=== PATIENT | male | born 1990 | race Caucasian/White ===

== ENCOUNTER 2017-01-13 01:38 | Emergency (ER) | payer OTHER, SELFPAY ==
[~2017-01-13] VITALS: Ht 177.8 cm; Wt 90.0 kg
[2017-01-13 01:39] VITALS: BP 141/94
[2017-01-13] MEDS ORDERED: SODIUM CHLORIDE 0.9% 1,000 ML IV ONE (01:53)
[2017-01-13] MEDS ORDERED: HYDROmorphone 1 MG/ML, 1ML ONE ×2 (01:59→02:11)
[2017-01-13] MEDS ORDERED: ONDANSETRON 2MG/ML, 2ML ONE ×2 (01:59→02:12)
[2017-01-13] MEDS ORDERED: ONDANSETRON 2MG/ML, 2ML IVPush ONE (02:00)
[2017-01-13] MEDS ORDERED: HYDROmorphone 1 MG/ML, 1ML IV ONE (02:00)
[2017-01-13] MEDS ORDERED: SODIUM CHLORIDE FLUSH 10ML SYR IVF ONE (02:00)
[2017-01-13] MEDS ORDERED: PROPOFOL 10 MG/ML, 20ML ONE (02:25)
[2017-01-13] MEDS ORDERED: PROPOFOL 10 MG/ML, 20ML IVPush ONE ×2 (02:30)
== END 2017-01-13 05:00 | disposition home or self-care (01) ==
LOC: ED 04:30
DX: S43.085A Other dislocation of left shoulder joint, initial encounter (principal); X58.XXXA Exposure to other specified factors, initial encounter; Y93.89 Activity, other specified; Y99.8 Other external cause status; Y92.009 Unspecified place in unspecified non-institutional (private) residence as the place of occurrence of the external cause; Z01.818 Encounter for other preprocedural examination
CPT/HCPCS: 23650; 73020; 73030; 96361; 96374; 96375; 99152; 99153; 99285; J1170; J2405; J2704; J7030

== ENCOUNTER → 2017-01-24 | Outpatient (CLI) | payer SELFPAY ==
[~2017-01-24] MED LIST: LIDOCAINE 1%, 20ML ONE; MULTIHANCE 529 MG/ML, 5ML IV ONE; OMNIPAQUE 300 MG/ML, 10ML VIAL ONE; ROPIvacaine/PF 0.2%, 20 ML ONE
== END | disposition home or self-care (01) ==
LOC: CFH 13:42
PROVIDERS: ATTEND Physician Assistant
DX: S43.085A Other dislocation of left shoulder joint, initial encounter (principal); X58.XXXA Exposure to other specified factors, initial encounter; Y93.89 Activity, other specified; Y92.89 Other specified places as the place of occurrence of the external cause; Y99.8 Other external cause status
CPT/HCPCS: 73040; 73222; A9577; J2795; J3490; Q9967

== ENCOUNTER 2020-04-14 17:47 | Emergency (ER) | payer BC, MEDICAID, OTHER ==
[~2020-04-14] VITALS: Ht 177.8 cm; Wt 96.0 kg
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
--- NOTE | 2020-04-14 18:53 | NUR ---
REPORT RECEIVED FROM SCOTTIE RN. PT RESTING ON GURNEY, MONITORING IN PLACE, CALL LIGHT WITHIN REACH, ALL SAFETY MEASURES IN PLACE.
[2020-04-14 19:01] VITALS: BP 127/83
--- NOTE | 2020-04-14 19:02 | NUR ---
PT RECONNECTED TO MONITORING, PT TEARFUL AT THIS TIME. [id number].
--- NOTE | 2020-04-14 19:32 | NUR ---
PT ABLE TO AMBUALTE WITH STEADY GAIT. PT STATES "I WANT TO GO". PT EDUCATED ON AMA STATU, VERBALIZED UNDERSTANDING. NOTIFIED.
== END 2020-04-14 19:45 | disposition home or self-care (01) ==
LOC: ED 18:45
DX: S02.2XXA Fracture of nasal bones, initial encounter for closed fracture (principal); F10.120 Alcohol abuse with intoxication, uncomplicated; R55 Syncope and collapse; Y04.8XXA Assault by other bodily force, initial encounter; Y93.89 Activity, other specified; Y92.098 Other place in other non-institutional residence as the place of occurrence of the external cause; Y99.8 Other external cause status; Y90.0 Blood alcohol level of less than 20 mg/100 ml
CPT/HCPCS: 82962; 99283